=== PATIENT | male | born 1965 | race Caucasian/White ===

== ENCOUNTER 2020-02-02 14:01 | Outpatient (REF) | payer OTHER, SELFPAY | END 2020-02-02 14:02 | disposition home or self-care (01) | LOC: HO.LAB 14:01 | PROVIDERS: Visit Provider Internal Medicine | DX: Z20.828 Contact with and (suspected) exposure to other viral communicable diseases (principal) | CPT/HCPCS: C9803; U0003 ==

== ENCOUNTER 2020-03-30 12:55 | Outpatient (REF) | payer OTHER, SELFPAY | END 2020-03-30 12:56 | disposition home or self-care (01) | LOC: HO.LAB 12:55 | PROVIDERS: Visit Provider Internal Medicine | DX: Z20.822 Contact with and (suspected) exposure to COVID-19 (principal) | CPT/HCPCS: 36415; C9803; U0003; U0005 ==

== ENCOUNTER 2020-06-10 09:03 | Outpatient (REF) | payer OTHER, SELFPAY ==
[2020-06-10 10:04] LABS: COVID-19 Test Positive (Negative); IDNOW Serial# 55D5AD1C
== END 2020-06-10 09:04 | disposition home or self-care (01) ==
LOC: HO.LAB 09:03
PROVIDERS: Visit Provider Internal Medicine
DX: Z20.822 Contact with and (suspected) exposure to COVID-19 (principal)
CPT/HCPCS: 36415; 87635; C9803

== ENCOUNTER 2020-06-27 08:51 | Outpatient (REF) | payer OTHER, SELFPAY ==
[2020-06-27 09:43] LABS: COVID-19 Test Negative (Negative)
== END 2020-06-27 08:52 | disposition home or self-care (01) ==
LOC: HO.LAB 08:51
PROVIDERS: Visit Provider Internal Medicine
DX: Z20.822 Contact with and (suspected) exposure to COVID-19 (principal)
CPT/HCPCS: 36415; 87635; C9803

== ENCOUNTER 2020-08-03 18:01 | Emergency (ER) | payer OTHER, SELFPAY | END 2020-08-03 19:59 | disposition left against medical advice (07) | PROVIDERS: Emergency Provider Emergency Medicine; PCP Physician Assistant | DX: Z04.1 Encounter for examination and observation following transport accident (principal) ==

== ENCOUNTER 2020-08-04 06:59 | Emergency (ER) | payer OTHER, SELFPAY ==
--- NOTE | ~2020-08-04 | XR_ITS ---
EXAMINATION: XR SHOULDER, LEFT CLINICAL INFORMATION: Left shoulder pain COMPARISON: None TECHNIQUE: Left shoulder is imaged in 4 views. FINDINGS: There is no acute or healing fracture or dislocation. The glenohumeral joint appears normal. There are no visible rotator cuff calcifications. The acromioclavicular alignment is normal. There are osteoarthritic changes involving the acromioclavicular joint with narrowing and spurring. On the lateral view, there is subtle decreased attenuation cortex distal superior left clavicle just proximal to the distal clavicular head. This is not confirmed on the other views and may be projectional. No periostitis. No soft tissue mineralization. XR/XR shoulder LT min 2V IMPRESSION: 1. Osteoarthritis acromioclavicular joint. No acromioclavicular separation. 2. Normal glenohumeral joint. No rotator cuff calcifications. 3. Subtle decreased attenuation superior cortex distal clavicle on one view, possibly artifactual. Recommend correlation with patient's symptoms and clinical exam. If there are symptoms referrable to the distal clavicle proximal to the AC joint, then further assessment with CT or MR may be considered to assess for occult bony lesion.
[2020-08-04 07:37] VITALS: BP 183/88; PULSE 89; RESP 16; TEMP 36.5; O2SAT 99; BMI 30.1
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
[2020-08-04] MEDS: Acetaminophen 325 MG TABLET 650 MG PO (10:11)
[2020-08-04] MEDS: Ibuprofen 600 MG TABLET PO (10:12)
== END 2020-08-04 10:16 | disposition home or self-care (01) ==
PROVIDERS: Emergency Provider Emergency Medicine Emergency Medical Services; PCP Physician Assistant
DX: S40.012A Contusion of left shoulder, initial encounter (principal); V49.40XA Driver injured in collision with unspecified motor vehicles in traffic accident, initial encounter; Y93.9 Activity, unspecified; Y92.410 Unspecified street and highway as the place of occurrence of the external cause; Y99.9 Unspecified external cause status
CPT/HCPCS: 73030; 99283

== ENCOUNTER → 2020-08-15 10:28 | Outpatient (BNVA) | payer OTHER, SELFPAY | PROVIDERS: PCP Physician Assistant; Visit Provider Physician Assistant ==

== ENCOUNTER 2020-09-01 15:34 | Outpatient (REF) | payer OTHER, SELFPAY ==
--- NOTE | ~2020-09-01 | MR_ITS ---
EXAMINATION: MRI OF THE LEFT SHOULDER WITHOUT CONTRAST: CLINICAL INFORMATION: Patient reports left shoulder pain. COMPARISON: None. TECHNIQUE: MRI left shoulder was performed without contrast on a high-field MRI scanner. The exam was incomplete as the patient became claustrophobic and could only tolerate 3 out of the usual 6 series. This limits diagnostic information available. FINDINGS: ROTATOR CUFF: Limited evaluation. No findings that would suggest rotator cuff tear. Rotator cuff muscles appear normal. BICEPS TENDON: Normal. CORACOACROMIAL ARCH: There is moderate hypertrophic osteoarthritis of the acromioclavicular joint. BURSA: Normal. LABRUM/CAPSULE: Normal. GLENOHUMERAL JOINT: Normal. MR/MR shoulder LT wo con IMPRESSION: The exam is limited as the patient could only complete 3 out of the usual 6 series performed for shoulder examination. There is moderate hypertrophic osteoarthritis of the acromioclavicular joint. While the evaluation is limited the rotator cuff appears likely intact. No labral abnormality is detected.
== END 2020-09-01 15:35 | disposition home or self-care (01) ==
LOC: HO.MRI 15:34
PROVIDERS: Visit Provider Physician Assistant
DX: M95.8 Other specified acquired deformities of musculoskeletal system (principal)
CPT/HCPCS: 73221

== ENCOUNTER → 2020-09-09 08:07 | Outpatient (BNVA) | payer OTHER, SELFPAY | PROVIDERS: PCP Physician Assistant; Visit Provider Physician Assistant ==

== ENCOUNTER 2020-10-26 17:00 | Outpatient (RCR) | payer OTHER, SELFPAY ==
--- NOTE | 2020-09-27 08:23 | MHC.PT.EP ---
[facility] [place] Office [place] Office [place] Office [address] Magdaleno Buenrostro [address] [phone] F: [phone] F: [phone] F: [phone] F: [phone] Physical Therapy Plan of Care Date of Evaluation: Date of Surgery: NA Diagnosis: impingement syndrome of left Assessment: The patient arrived reporting right shoulder and neck pain. His x-ray and MRI were negative for RTC pathology. A Alma assessment showed he had an extension directional preference. The patient felt less pain after posture correction, and he felt even better with the Alma cervical retractions. He had poor proprioception and technique with doing the exercises which was improved doing the exercises supine. Frequency and Duration: The patient will be seen 2x/week x 4 weeks Short Term Goals: 1.Pt to able to demonstrate proper sitting posture with the use of a lumbar roll to decrease aggravating factors. 2.Pt to be able to demonstrate proper posture for common leisure activities such as crocheting and phone/tablet use. 3.For the patient to demonstrate proper upright sitting posture with use of the lumbar roll to improve compliance and carryover. Residential Goals: . Pt to be able to return to normal PLOF without limiting pain. 2. Pt to be able to return to overhead reaching without pain or limitation. 3. Pt to be able to manage her pain with selected exercise and stretching regime. Treatment Plan: Modalities to reduce pain, spasms and effusion. Manual therapy to restore motion and function. Therapeutic exercise to improve strength and flexibility. Neuromuscular re-education for posture and balance. Therapeutic activities to return to functional activities of daily living. Electronically signed by: Jamia Buitrago PT DPT Please sign and return to therapist. Thank you for your referral.
== END 2021-01-06 12:47 | disposition home or self-care (01) ==
LOC: HO.PT 17:00
PROVIDERS: PCP Physician Assistant; Visit Provider Physician Assistant
DX: M95.8 Other specified acquired deformities of musculoskeletal system (principal); M75.42 Impingement syndrome of left shoulder
CPT/HCPCS: 97110; 97112; 97140; 97161

== ENCOUNTER 2023-06-20 07:55 | Emergency (ER) | payer SELFPAY ==
[2023-06-20 08:02] VITALS: BP 170/90; PULSE 100; RESP 18; TEMP 36.5; O2SAT 97; BMI 29.4
--- NOTE | 2023-06-20 08:22 | PC.NURSE ---
Pt noted to have right forehead/eye swelling/redness. Multiple blister like sacs noted on forehead. 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
[2023-06-20] MEDS: Fluorescein Sodium STRIP 1 STRIP EYE-RIGHT (08:45)
[2023-06-20] MEDS: Tetracaine HCl/PF 0.5% Oph Sol 4 ML DROPS 1 DROP EYE-RIGHT (08:45)
--- NOTE | 2023-06-20 09:25 | ED.GENADULT ---
HPI - General Adult General Chief complaint: Eye Problems Stated complaint: R eye swelling Time Seen by Provider: 06/20/23 08:30 Source: patient Mode of arrival: ambulatory Limitations: no limitations History of Present Illness HPI narrative: 58-year-old male came in for evaluation of 2 days rash on his right side of his forehead and temporal area, woke up this morning his right eyelid are swollen with discharge, complaining of right eye pain, slight blurry vision, patient declined any history of being immunocompromised, no history of diabetes, not taking any steroids, a known history of previous chickenpox infection. Rashes are mainly on right forehead and temporal area of the scalp no rash on the nose. No fever, no chills, no headache. Related Data Previous Rx's ?Medication ?Instructions ?Recorded hydrochlorothiazide 12.5 mg capsule 12.5 mg PO DAILY 90 days #90 caps 09/05/20 naproxen 500 mg tablet 500 mg PO BID 10 days #20 tabs 09/05/20 erythromycin 5 mg/gram (0.5 %) eye 1 appl ophthalmic-Left 6XD #50 06/20/23 ointment grams gabapentin 100 mg capsule 100 mg PO TID PRN pain (scale 06/20/23 score 7-10) #20 caps prednisone 20 mg tablet 20 mg PO BID #10 tabs 06/20/23 valacyclovir 1 gram tablet 1,000 mg PO TID 5 days #15 tabs 06/20/23 (Valtrex) Allergies Allergy/AdvReac Type Severity Reaction Status Date / Time cephalexin [From Keflex] AdvReac Diarrhea Verified 06/20/23 08:05 Review of Systems Review of Systems: All other systems are reviewed and are negative Constitutional: Reports as per HPI and Reports no additional constitutional complaints Eyes: Reports as per HPI and Reports no additional eye complaints Reports system reviewed and no additional complaints, except as documented Cardiovascular: Reports as per HPI and Reports no additional cardiovascular complaints Respiratory: Reports as per HPI and Reports no additional respiratory complaints Gastrointestinal: Reports as per HPI and Reports no additional gastrointestinal complaints Genitourinary: Reports no additional female genitourinary complaints Musculoskeletal: Reports no additional musculoskeletal complaints Skin/Breast: Reports system reviewed and no additional complaints, except as docu Psychiatric: Reports no additional psychiatric complaints Endocrine: Reports no additional endocrine complaints Hematologic/Lymphatic: Reports no additional hematologic/lymphatic complaints Allergic/Immunologic: Reports no additional allergic/immunologic complaints Reports system reviewed and no additional complaints, except as documented and Reports Abnormal speech present [facility] Past Medical History Medical History No known health problems Surgical History No pertinent past surgical history Family History Family History Mother No problems noted. Father Alcoholism Brother In good health Sister Acute kidney failure Social History Social History Housing: House Alcohol intake: former Patient Tobacco Use Status: Current everyday Tobacco user Cigarettes Per Day: 7 e-Cigarette/Vaping Use: Never Used Second Hand Smoke Exposure: No Advance Directives: No Do you have a plan to hurt others: No Plan Current occupational status: employed Current occupation: [employer] Physical Exam ED Vital Signs: Vital Signs - 24 hr 06/20/23 08:02 Temperature 97.7 F Pulse Rate 100 Respiratory Rate 18 Blood Pressure 170/90 H Pulse Oximetry 97 Oxygen Delivery Method Room Air BMI result Body Mass Index 29.4 Vital signs have been reviewed and appear to be correct. Blood pressure elevated. Heart rate normal. Respiratory rate normal. Temperature normal. Oxygen saturation normal. Appearance: Alert. Oriented X3. No acute distress. Head: Normal external exam. Normocephalic. Atraumatic. No Munoz signs noted. No raccoon eyes note Eye exam: Visual acuity 20/50 bilaterally. General: appearance normal, both eyes and all related structures Visual Moffett: normal visual moffett by confrontation Alignment and Position: alignment normal and position normal Periorbital: periorbital with a normal Eyelids: Upper and lower eyelid swelling Conjunctivae: conjunctivae injection Sclerae: scleral injection Corneas: No corneal fluorescein uptake Pupils: Equal, round and reactive pupils present and Pupil accommodation reflex normal EOM: EOM abnormal (Limited abduction of right eye) and No Nystagmus present Direct Ophthalmoscopy: normal light reflex, no photophobia, no papilledema and fundi normal bilaterally ENT: TM's Normal. Pharynx normal. Uvula midline. Moist mucous membranes. No trismus noted. No drooling noted. No muffled voice noted. Neck: Normal inspection. Neck supple. FROM. No adenopathy. Thyroid Normal. No meningeal signs. No neck mass noted. CVS: Normal heart rate and rhythm. Heart sound normal. No murmurs noted. Pulses normal throughout. Respiratory: No respiratory distress. Painless inspiration. Breath sounds normal. No wheezes/rales/rhonchi noted. Chest nontender. No accessory muscle usage noted or decreased air movement noted. Abdomen: Soft and nontender. Bowel sounds normal in all 4 quadrants. No distention noted. No organomegaly noted. No visible injury noted. Back: No CVA tenderness. Full range of motion noted. Skin: Skin warm and dry. Normal skin color. Normal skin turgor. No rashes/lesions/lacerations noted. Extremities: No lower extremity edema. Extremities exhibit normal range of motion. Extremities nontender. Neuro: Oriented X 3. Cranial nerve exam: II-XII are grossly intact No motor deficit. No sensory deficit. Reflexes normal. Course Reevaluation(s) Reevaluation #1: Herpes zoster affecting right-sided of the face, causing conjunctivitis with likely superimposed bacterial conjunctivitis. 1. High blood pressure likely due to pain patient was instructed to follow-up with his PCP for more management of the blood pressure. 2. Herpes zoster times 24 hours patient is not immunocompromised will start the patient on Valtrex/systemic prednisone for 5 days/erythromycins/gabapentin for pain. 3. There is no fluorescein corneal uptake the case was discussed with Dr. Juarez who recommended against eyedrops steroids but agreed on systemic steroids and antiviral medication patient will be followed up as an outpatient with Dr. Juarez. Patient fully understand that great risk of herpes zoster ophthalmicus is loss of vision. Time: 09:30 Medications Administered Discontinued Medications Generic Name Dose Route Start Last Admin Trade Name Freq PRN Reason Stop Dose Admin Fluorescein Sodium 1 strip 06/20/23 08:35 06/20/23 08:45 Fluorescein Sodium Strip EYE-RIGHT 06/20/23 08:36 1 strip ONCE ONE Administration Tetracaine HCl 1 drop 06/20/23 08:35 06/20/23 08:45 Tetracaine Hcl/Pf 0.5% Oph Namita 4 Ml Drops EYE-RIGHT 06/20/23 08:36 1 drop ONCE ONE Administration Medical Decision Making Differential Diagnosis Differential Diagnoses: The differential diagnosis associated with the presentation includes (Shingles, herpes zoster ophthalmicus, conjunctivitis.) Admission/Observation Consideration of admission/observation: Escalation of care including admission/observation considered Discharge Plan Discharge Clinical Impression: Herpes zoster, Herpes zoster conjunctivitis of left eye, Acute bacterial conjunctivitis, Herpes zoster ophthalmicus of left eye Patient Disposition: Home, Self-Care Instructions: Shingles (ED), Conjunctivitis (ED) Prescriptions: New erythromycin 5 mg/gram (0.5 %) ointment 1 appl ophthalmic-Left 6XD Qty: 50 0RF Rx Instructions: Half-inch ribbon to the left eye under the eyelid every 4 hours when he is awake. prednisone 20 mg tablet 20 mg PO BID Qty: 10 0RF valacyclovir [Valtrex] 1 gram tablet 1,000 mg PO TID 5 Days Qty: 15 0RF gabapentin 100 mg capsule 100 mg PO TID PRN (Reason: pain (scale score 7-10)) Qty: 20 0RF No Action naproxen 500 mg tablet 500 mg PO BID 10 Days Qty: 20 0RF hydrochlorothiazide 12.5 mg capsule 12.5 mg PO DAILY 90 Days Qty: 90 1RF Referrals: Johnny Juarez [Physician] - Stand Alone Forms: Work/School Release Print Language: Citizen Of [place]
[2023-06-20 09:48] VITALS: BP 156/99; PULSE 94; RESP 20; TEMP 36.9; O2SAT 94
== END 2023-06-20 09:49 | disposition home or self-care (01) ==
PROVIDERS: Emergency Provider Emergency Medicine; PCP Physician Assistant
DX: H57.11 Ocular pain, right eye (principal); B02.8 Zoster with other complications; H10.33 Unspecified acute conjunctivitis, bilateral
CPT/HCPCS: 99283; 99284

== ENCOUNTER 2023-06-22 13:00 | Emergency (ER) | payer SELFPAY ==
[2023-06-22 13:04] VITALS: BP 155/91; PULSE 104; RESP 16; TEMP 36.6; O2SAT 98; BMI 29.4
--- NOTE | 2023-06-22 13:06 | ED.GENADULT ---
HPI - General Adult General Chief complaint: Eye Problems Stated complaint: r eye recheck Time Seen by Provider: 06/22/23 13:54 Source: patient Mode of arrival: ambulatory Limitations: no limitations History of Present Illness HPI narrative: patient is a 58-year-old male who presents emergency department for evaluation of increasing swelling and redness surrounding the right eye. Reports that he was seen in the emergency department 2 days ago and diagnosed with shingles and bacteria infection to the right eye. He admits that he has had difficulty applying the antibiotic eye ointment due to the amount of swelling he was having to the eye. He reports that the eye is not particularly painful especially upon movement of the eye. He has had increased drainage from the eye and crusting of the eyelashes. He states he has been compliant with the antiviral medication. When asked, he has not contacted the eye doctor for follow-up citing that he has not had the time . He does verbalize understanding that he was advised that progression of shingles to the eye could result in permanent vision loss. Related Data Previous Rx's ?Medication ?Instructions ?Recorded hydrochlorothiazide 12.5 mg capsule 12.5 mg PO DAILY 90 days #90 caps 09/05/20 naproxen 500 mg tablet 500 mg PO BID 10 days #20 tabs 09/05/20 erythromycin 5 mg/gram (0.5 %) eye 1 appl ophthalmic-Left 6XD #50 06/20/23 ointment grams gabapentin 100 mg capsule 100 mg PO TID PRN pain (scale 06/20/23 score 7-10) #20 caps prednisone 20 mg tablet 20 mg PO BID #10 tabs 06/20/23 valacyclovir 1 gram tablet 1,000 mg PO TID 5 days #15 tabs 06/20/23 (Valtrex) amoxicillin 875 mg-potassium 1 tab PO BID #14 tabs 06/22/23 clavulanate 125 mg tablet Allergies Allergy/AdvReac Type Severity Reaction Status Date / Time cephalexin [From Keflex] AdvReac Diarrhea Verified 06/22/23 13:05 Review of Systems Review of Systems: Yes all other systems are reviewed and are negative PMFSH Past Medical History Attestation statement: The following information was validated with the patient. Source: old records reviewed Medical History No known health problems Surgical History No pertinent past surgical history Family History Family History Mother No problems noted. Father Alcoholism Brother In good health Sister Acute kidney failure Social History Social History (Reviewed 09/09/20 @ 08:20 by Maylin Tsang [facility]) Housing: House Alcohol intake: former Patient Tobacco Use Status: Current everyday Tobacco user Cigarettes Per Day: 7 e-Cigarette/Vaping Use: Never Used Second Hand Smoke Exposure: No Advance Directives: No Advance Directives Information Provided: No Do you have a plan to hurt others: No Plan Current occupational status: employed Current occupation: [employer] Physical Exam ED Vital Signs: Vital Signs - 24 hr 06/22/23 13:04 Temperature 97.9 F Pulse Rate 104 H Respiratory Rate 16 Blood Pressure 155/91 H Pulse Oximetry 98 Oxygen Delivery Method Room Air BMI result Body Mass Index 29.4 Appearance: Alert.?Oriented to person, place and time. No acute distress.?Normal affect. Eyes: Pupils equal, round and reactive to light.? Visual acuity 20/50 bilaterally. no dendritic lesions or fluorescein uptake upon examination. Periorbital swelling ENT: TM normal bilaterally. Neck: Normal inspection.? Neck supple.?? CVS: Heart sounds normal. Normal heart rate and rhythm.? Pulses normal.?? Respiratory: No respiratory distress.? Lung sounds clear to auscultation bilaterally?? Skin: Skin warm and dry.? Normal skin color.? Neuro: Moves all extremities spontaneously. Sensation intact bilaterally. CN II-XII intact. No focal neuro deficits. Ambulates with normal steady gait. Course Course Course Narrative: RME performed by Larisa Guardado PA-C. Patient is a 58 year old assigned male at presenting to the emergency department with right eye swelling that has not improved. Patient was seen here recently and diagnosed with herpes zoster of the eye and conjunctivitis. Patient states that his vision is still OK. Patient states that he has not been able to get the antibiotic cream into the right eye and would rather have drops if possible. Detailed physical exam and review of systems are deferred to the control integration engineer. Patient placed back in the waiting room pending room availability. Medical Decision Making Medical Decision Making MDM Narrative: Patient is a 58-year-old male who presents emergency department for evaluation of increased swelling and redness to the right eye after being evaluated 2 days ago and diagnosed with herpes zoster and bacterial conjunctivitis. On exam has periorbital soft tissue swelling concerning for progression of herpes zoster versus superimposed bacterial periorbital cellulitis. On his recent emergency department visit he was provided with erythromycin ointment due to concern for superimposed bacterial infection, he does admit that he has had difficulty applying the erythromycin ointment. At abundance of caution will provide a course of oral antibiotics to cover bacterial periorbital cellulitis and recommend continued management with antiviral and outpatient follow-up with Ophthalmology. I again discussed the importance of follow-up with ophthalmology in that the risks of herpes zoster ophthalmicus includes vision loss and he verbalizes understanding of this. Differential Diagnosis Differential Diagnoses: The differential diagnosis associated with the presentation includes ( see narrative above) Admission/Observation Consideration of admission/observation: Escalation of care including admission/observation considered ( see narrative above) External Record Review External record reviewed: Outpatient record Prescription Management I considered prescription management with: Antibiotic Discharge Plan Discharge Clinical Impression: Herpes zoster, Preseptal cellulitis of right eye Patient Disposition: Home, Self-Care Instructions: Shingles (ED), Periorbital Cellulitis in Adults (ED) Additional Instructions: IT IS IMPORTANT THAT YOU FOLLOW-UP WITH THE EYE DOCTOR DR. JUAREZ. PLEASE CONTACT THEIR OFFICE FIRST THING SATURDAY MORNING. A SHINGLES INFECTION TO THE EYE DIRECTLY CAN RESULT IN VISION LOSS THAT CAN BE PERMANENT. A COURSE OF ORAL ANTIBIOTICS WAS SENT TO YOUR PHARMACY FOR TREATMENT OF INFECTION SURROUNDING THE RIGHT EYE. STOP USING THE ANTIBIOTIC EYE OINTMENT. IF YOU DEVELOP WORSENING PAIN, INCREASED REDNESS, DISCHARGE FROM THE EYE, INABILITY TO MOVE THE EYE SUCH LOOKING TO THE SIDE UP AND DOWN WITHOUT SIGNIFICANT PAIN THEN THIS SHOULD BE RE-EVALUATED IMMEDIATELY Prescriptions: New amoxicillin-pot clavulanate 875-125 mg tablet 1 tab PO BID Qty: 14 0RF No Action erythromycin 5 mg/gram (0.5 %) ointment 1 appl ophthalmic-Left 6XD Qty: 50 0RF Rx Instructions: Half-inch ribbon to the left eye under the eyelid every 4 hours when he is awake. prednisone 20 mg tablet 20 mg PO BID Qty: 10 0RF valacyclovir [Valtrex] 1 gram tablet 1,000 mg PO TID 5 Days Qty: 15 0RF gabapentin 100 mg capsule 100 mg PO TID PRN (Reason: pain (scale score 7-10)) Qty: 20 0RF naproxen 500 mg tablet 500 mg PO BID 10 Days Qty: 20 0RF hydrochlorothiazide 12.5 mg capsule 12.5 mg PO DAILY 90 Days Qty: 90 1RF Referrals: Jeb Anaya PA-C [Primary Care Provider] - Johnny Juarez [Physician] - Print Language: Chinese
[2023-06-22] MEDS: Tetracaine HCl/PF 0.5% Oph Sol 4 ML DROPS 1 DROP EYE-RIGHT (14:14)
[2023-06-22] MEDS: Fluorescein Sodium STRIP 1 STRIP EYE-RIGHT (14:14)
[2023-06-22 14:36] VITALS: BP 155/91; PULSE 104; RESP 16; TEMP 36.6; O2SAT 98
== END 2023-06-22 14:37 | disposition home or self-care (01) ==
PROVIDERS: Emergency Provider Student in an Organized Health Care Education/Training Program; PCP Physician Assistant
DX: L03.213 Periorbital cellulitis (principal); B02.30 Zoster ocular disease, unspecified
CPT/HCPCS: 99282; 99283

== ENCOUNTER 2023-07-12 10:27 | Emergency (ER) | payer SELFPAY ==
[2023-07-12 10:30] VITALS: BP 158/87; PULSE 100; RESP 20; TEMP 37.2; O2SAT 100; BMI 28.9
--- NOTE | 2023-07-12 12:19 | ED_ITS ---
HPI - General Adult General Chief complaint: General Medical Stated complaint: R eye pain Time Seen by Provider: 07/12/23 11:58 Source: patient, RN notes reviewed and old records reviewed Mode of arrival: ambulatory Limitations: no limitations History of Present Illness HPI narrative: 58-year-old male with past medical history significant for hypertension, current tobacco smoker presents to the ED today for evaluation right facial and eye pain x3 weeks, worsening acutely yesterday. Reports diagnosis of herpes zoster on 06/22/2023. He was discharged home with Valtrex for treatment. He took this medication to completion. Yesterday began having burning right-sided facial pain. He has not noticed any new lesions to his face. Reports pain extending from his right anabaptist into his right eye and over his right cheek. He has not been taking anything for this at home. He states he was not able to sleep last night due to the pain. Denies injury or trauma to the face. Denies foreign body sensation. Denies crusting. Denies fevers, chills, N/V, vision changes, ear pain/discharge. Related Data Previous Rx's ?Medication ?Instructions ?Recorded hydrochlorothiazide 12.5 mg capsule 12.5 mg PO DAILY 90 days #90 caps 09/05/20 naproxen 500 mg tablet 500 mg PO BID 10 days #20 tabs 09/05/20 erythromycin 5 mg/gram (0.5 %) eye 1 appl ophthalmic-Left 6XD #50 06/20/23 ointment grams gabapentin 100 mg capsule 100 mg PO TID PRN pain (scale 06/20/23 score 7-10) #20 caps prednisone 20 mg tablet 20 mg PO BID #10 tabs 06/20/23 valacyclovir 1 gram tablet 1,000 mg PO TID 5 days #15 tabs 06/20/23 (Valtrex) amoxicillin 875 mg-potassium 1 tab PO BID #14 tabs 06/22/23 clavulanate 125 mg tablet gabapentin 100 mg capsule 100 mg PO TID 2 weeks #42 caps 07/12/23 Allergies Allergy/AdvReac Type Severity Reaction Status Date / Time cephalexin [From Keflex] AdvReac Diarrhea Verified 07/12/23 10:34 Review of Systems Review of Systems: Constitutional: No fever, chills, fatigue, night sweats, weight changes ENT/Mouth: No ear pain, hearing loss, nasal congestion, sinus pain, rhinorrhea, sore throat Eyes: No swelling, redness, vision changes, discharge, +right facial and right eye pain Cardio: No chest pain, palpitations, HORNE, orthopnea, peripheral edema Pulm: No SOB, cough, sputum, wheezing, dyspnea, hemoptysis GI: No nausea, vomiting, hematemesis, abdominal pain, diarrhea, constipation, hematochezia, melena : No irregular bleeding, dysuria, frequency, urgency, hesitancy, hematuria, flank pain, urinary flow changes, urinary incontinence or retention MSK: No back pain, neck pain, joint pain, myalgias Skin: No lesions, rashes Neuro: No weakness, numbness, paresthesias, LOC, dizziness, headache Psych: No anxiety/panic, depression, SI/HI, AH/VH All other systems reviewed and are negative. [facility] Past Medical History Attestation statement: The following information was validated with the patient. Source: old records reviewed and nursing notes reviewed Medical History No known health problems Surgical History No pertinent past surgical history Family History Family History Mother No problems noted. Father Alcoholism Brother In good health Sister Acute kidney failure Social History Social History Housing: House Alcohol intake: former Patient Tobacco Use Status: Current everyday Tobacco user Cigarettes Per Day: 7 e-Cigarette/Vaping Use: Never Used Second Hand Smoke Exposure: No Advance Directives: No Advance Directives Information Provided: No Do you have a plan to hurt others: No Plan Current occupational status: employed Current occupation: [employer] Physical Exam ED Vital Signs: Vital Signs - 24 hr 07/12/23 10:30 Temperature 98.9 F Pulse Rate 100 Respiratory Rate 20 Blood Pressure 158/87 H Pulse Oximetry 100 Oxygen Delivery Method Room Air BMI result Body Mass Index 28.9 Patient hypertensive, vitals otherwise WNL Const Other: Nontoxic appearing General: cooperative, healthy appearing and no acute distress Orientation/consciousness: patient oriented x3 Limitations: no limitations HENMT Other: + Crusted lesions in dermatomal pattern noted to right anabaptist. No active pustular lesions on erythematous base noted. No lesions noted to internal external nose. No lesions noted to external right ear or EAC. Head: Yes No palpable skull fracture present, Yes normocephalic and Yes atraumatic Eyes Other: + no visual dendritic lesions. Injected conjunctiva. No corneal abrasion or ulceration. PERRLA. On fluorescein stain, there is no reuptake to indicate abrasion or foreign body. IOP OD 5, OS 16. No periorbital swelling or erythema. Neck Neck: Yes normal visual inspection, Yes full ROM and Yes no lymphadenopathy Resp Effort & Inspection: normal respiratory effort and able to speak in complete sentences Cardio Rate: regular rate Rhythm: regular rhythm Neuro General: patient oriented x3, gait normal and tone normal Course Course Course Narrative: 1340-- Physical exam consistent with healing herpes zoster lesions. I have suspicion for post herpetic neuralgia. No concern for new infection. No concer n for [place] Aquino syndrome or herpes zoster ophthalmicus. Will send gabapentin to pharmacy for nerve pain. Advised to follow-up with PCP this week. Patient has remained stable throughout ED visit today. Discussed worrisome signs and symptoms and when to return to the ED. All questions answered at this time. Patient is agreeable with disposition and stable for discharge. Medications Administered Discontinued Medications Generic Name Dose Route Start Last Admin Trade Name Jermainq PRN Reason Stop Dose Admin Fluorescein Sodium 1 strip 07/12/23 12:20 07/12/23 13:48 Fluorescein Sodium Strip EYE-RIGHT 07/12/23 12:21 1 strip ONCE ONE Administration Tetracaine HCl 1 drop 07/12/23 12:20 07/12/23 13:48 Tetracaine Hcl/Pf 0.5% Oph Namita 4 Ml Drops EYE-RIGHT 07/12/23 12:21 1 drop ONCE ONE Administration Medical Decision Making Medical Decision Making MDM Narrative: 58-year-old male with past medical history significant for hypertension, current tobacco smoker presents to the ED today for evaluation right facial and eye pain x3 weeks, worsening acutely yesterday. Patient hypertensive, vitals otherwise WNL. He is nontoxic appearing in no acute distress. Lying uncomfortably on exam bed with lights dimmed. On eye examination, there are no visual dendritic lesions. Injected conjunctiva. No corneal abrasion or ulceration. PERRLA. On fluorescein stain, there is no reuptake to indicate abrasion or foreign body. IOP OD 5, OS 16. No periorbital swelling or erythema. Crusted lesions noted to right anabaptist. No active pustular lesions on erythematous base noted. No lesions noted to internal external nose. No lesions noted to external right ear or EAC. Differential diagnosis includes shingles, post herpetic neuralgia. Unlikely leonel aquino, herpes ophthalmicus, corneal abrasion, corneal ulceration, glaucoma, herpes simplex, SJS/TEN. Plan for [facility], fluorescein and tetracaine examination, and re-evaluation. Differential Diagnosis Differential Diagnoses: The differential diagnosis associated with the presentation includes As above Admission/Observation Not indicated External Record Review External record reviewed: Inpatient record, Office record, Outpatient record, Prior outpatient labs, Prior outpatient radiology, Primary care record and Outside ED record Prescription Management I considered prescription management with: Other (Gabapentin) Discharge Plan Discharge Clinical Impression: Acute pain associated with herpes zoster Patient Disposition: Home, Self-Care Instructions: Gabapentin (By mouth), Shingles (ED) Additional Instructions: You are having pain associated with your recent shingles infection. Gabapentin is a nerve medication that has been sent to your pharmacy. Take this 3 times daily. This may make you drowsy for the first few days as your body acclimates to it. Follow up with your PCP. If pain persists or worsens or if you begin to have vision changes, please return to the ED. In the case of an emergency call 911. Prescriptions: New gabapentin 100 mg capsule 100 mg PO TID 14 Days Qty: 42 0RF No Action erythromycin 5 mg/gram (0.5 %) ointment 1 appl ophthalmic-Left 6XD Qty: 50 0RF Rx Instructions: Half-inch ribbon to the left eye under the eyelid every 4 hours when he is awake. prednisone 20 mg tablet 20 mg PO BID Qty: 10 0RF valacyclovir [Valtrex] 1 gram tablet 1,000 mg PO TID 5 Days Qty: 15 0RF gabapentin 100 mg capsule 100 mg PO TID PRN (Reason: pain (scale score 7-10)) Qty: 20 0RF amoxicillin-pot clavulanate 875-125 mg tablet 1 tab PO BID Qty: 14 0RF naproxen 500 mg tablet 500 mg PO BID 10 Days Qty: 20 0RF hydrochlorothiazide 12.5 mg capsule 12.5 mg PO DAILY 90 Days Qty: 90 1RF Referrals: Jeb Anaya PA-C [Primary Care Provider] - Interventions: ED Discharge Assessment Last Done: 07/12/23 13:47 Discharge Date/Time: 07/12/23 13:47 Print Language: Nicaraguan
[2023-07-12 13:47] VITALS: BP 145/81; PULSE 90; RESP 16; TEMP -17.7; TEMP 0
[2023-07-12] MEDS: Fluorescein Sodium STRIP 1 STRIP EYE-RIGHT (13:48)
[2023-07-12] MEDS: Tetracaine HCl/PF 0.5% Oph Sol 4 ML DROPS 1 DROP EYE-RIGHT (13:48)
== END 2023-07-12 13:47 | disposition home or self-care (01) ==
PROVIDERS: Emergency Provider Emergency Medicine; PCP Physician Assistant
DX: B02.8 Zoster with other complications (principal); H57.11 Ocular pain, right eye; I10 Essential (primary) hypertension
CPT/HCPCS: 99282; 99283

== ENCOUNTER 2024-06-30 12:38 | Emergency (ER) | payer OTHER, SELFPAY ==
--- NOTE | ~2024-06-30 | CT_ITS ---
EXAMINATION: CT CERVICAL SPINE WITHOUT CONTRAST CLINICAL INFORMATION: Neck pain. COMPARISON: None available. TECHNIQUE: Contiguous axial images through the cervical spine using 3 mm collimation with bone and soft tissue algorithm. Sagittal and coronal reformatted images on the bone algorithm. This CT examination was performed using dose optimization techniques as appropriate, variously including the following: *Automated exposure control *Adjustment of mA and/or kV according to patient size (this includes techniques or standardized protocols for targeted exams where dose is matched to indication/reason for exam; i.e. extremities or head) *Use of iterative reconstruction technique DLP: 589 mGy centimeter. FINDINGS: Craniocervical junction is intact with normal alignment. Generative changes in the periodontal C1 region. Marginal osteophyte formation at C5-6 and C6-7 levels with associated decreased intervertebral disc height. C1 is intact. C2 is intact. C3 is intact. C4 is intact. C5 is intact. C6 is intact. C3 7 is intact. Normal alignment between the vertebral bodies and the facet joints. No gross prevertebral compartment hematoma. Calcified plaques in the carotic arteries. CT/CT cervical spine wo IV con IMPRESSION: Cervical spondylosis C5-6 and C6-7 levels without acute fracture or trauma-related listhesis. Atherosclerosis disease, carotid arteries. Fleischner guidelines were followed. Electronically signed by: Drew Givens MD 06/30/2024 01:43 PM EDT
--- NOTE | ~2024-06-30 | XR_ITS ---
EXAMINATION: XR SHOULDER, LEFT CLINICAL INFORMATION: left shoulder pain COMPARISON: August 04 2020 TECHNIQUE: AP external rotation, Grashey, scapular Y, and axillary views of the left shoulder. FINDINGS: Sclerosis and the articular surface with minimal subchondral cyst formation and asymmetric joint space narrowing, acromioclavicular joint. No acute cortical disruption or malalignment. No lytic or blastic lesions. XR/XR shoulder LT min 2V IMPRESSION: No acute fracture or dislocation. Degenerative changes, acromioclavicular joint. Electronically signed by: Drew Givens MD 06/30/2024 01:44 PM EDT
[2024-06-30 13:07] VITALS: BP 183/97; PULSE 85; RESP 20; TEMP 37; O2SAT 98; BMI 30.4
--- NOTE | 2024-06-30 13:12 | ECG_ITS ---
Test Reason : SHLDR PAIN Blood Pressure : */* mmHG Vent. Rate : 77 BPM Atrial Rate : 77 BPM P-R Int : 206 ms QRS Dur : 96 ms QT Int : 356 ms P-R-T Axes : 30 49 57 degrees QTcB Int : 402 ms Normal sinus rhythm Normal ECG No previous ECGs available Referred By: Ricky Wren Electronically Signed By: JOSE THOMAS
--- NOTE | 2024-06-30 13:12 | ED.EXTPRO ---
HPI - Extremity Problem General Chief complaint: Extremity Injury, Upper Stated complaint: shoulder inj @ work Time Seen by Provider: 06/30/24 15:49 Source: patient Mode of arrival: ambulatory Limitations: no limitations History of Present Illness ED Provider: Jesse Navarrete HPI Narrative: 56-year-old male history of hypertension presents to ED for left neck left shoulder pain and tingling after heavy lifting at work. Patient was lifting heavy boxes at work and then he was holding on to the handle and while coming off he did a awkward movement and felt immediate pain in his left posterior neck and left shoulder with some tingling. Patient denies any headache, slurred speech, facial droop, nausea, vomiting, dizziness, headache, loss of vision, or paralysis of extremities. Related Data Previous Rx's ?Medication ?Instructions ?Recorded hydrochlorothiazide 12.5 mg capsule 12.5 mg PO DAILY 90 days #90 caps 09/05/20 naproxen 500 mg tablet 500 mg PO BID 10 days #20 tabs 09/05/20 erythromycin 5 mg/gram (0.5 %) eye 1 appl ophthalmic-Left 6XD #50 06/20/23 ointment grams gabapentin 100 mg capsule 100 mg PO TID PRN pain (scale 06/20/23 score 7-10) #20 caps prednisone 20 mg tablet 20 mg PO BID #10 tabs 06/20/23 valacyclovir 1 gram tablet 1,000 mg PO TID 5 days #15 tabs 06/20/23 (Valtrex) amoxicillin 875 mg-potassium 1 tab PO BID #14 tabs 06/22/23 clavulanate 125 mg tablet gabapentin 100 mg capsule 100 mg PO TID 2 weeks #42 caps 07/12/23 naproxen 500 mg tablet 500 mg PO BID PRN pain #14 tabs 06/30/24 Allergies Allergy/AdvReac Type Severity Reaction Status Date / Time cephalexin [From Keflex] AdvReac Diarrhea Verified 06/30/24 13:07 Review of Systems Review of Systems: Left neck and left shoulder pain after heavy lifting at work and awkward movement. Yes all other systems are reviewed and are negative PMFSH Past Medical History Medical History No known health problems Surgical History No pertinent past surgical history Family History Family History Mother No problems noted. Father Alcoholism Brother In good health Sister Acute kidney failure Social History Social History Housing: House Alcohol intake: former Patient Tobacco Use Status: Current everyday Tobacco user Cigarettes Per Day: 7 e-Cigarette/Vaping Use: Never Used Second Hand Smoke Exposure: No Current occupational status: employed Current occupation: [employer] Physical Exam Vital Signs: Vital Signs: Last Vital Signs Temp 97.8 F 06/30/24 16:25 Pulse 96 06/30/24 16:25 Resp 18 06/30/24 16:25 BP 147/84 H 06/30/24 16:25 Pulse Ox 97 06/30/24 16:25 O2 Del Method Room Air 06/30/24 16:25 BMI result Body Mass Index 30.4 Const: General: cooperative, healthy appearing, comfortable, no acute distress, well developed, alert, awake and Physically active Orientation/consciousness: patient oriented x3 HEENT: Head: Yes normal to inspection, Yes No palpable skull fracture present, Yes normocephalic, Yes atraumatic and No abrasion Eyes: General: appearance normal, both eyes and all related structures Neck: Neck: Yes normal visual inspection, Yes full ROM, Yes no lymphadenopathy, Yes no meningeal signs, Yes trachea midline, Yes supple, No anterior neck swelling and Yes tender (positive cervical spine tenderness on palpation. ) Chest: Chest palpation & inspection: normal inspection of the chest and normal palpation of entire chest wall Resp: Effort & Inspection: normal respiratory effort and able to speak in complete sentences Auscultation: clear to auscultation bilaterally Cardio: Jugular venous distension: no JVD Heart sounds: S1 normal heart sound present and S2 normal heart sound present GI: Inspection: Yes normal to inspection Palpation (GI): Soft to palpation, not firm, nontender, no guarding and not rigid : General: Yes no CVA tenderness Back/Spine/Pelvis: Back: no CVA tenderness and No back tenderness Skin: General skin exam: no rashes or lesions noted, elasticity normal and turgor normal Neuro: General: patient oriented x3, gait normal, tone normal, moves all extremities, Normal light touch and pain sensation, no meningeal signs, no focal motor deficits, CN's II-XI intact bilaterally and normal sensation to monofilament Extrem: General: Yes normal to inspection, Yes full ROM and Yes capillary refill normal Shoulder/upper arm images: 1. Positive for tenderness on palpation. Negative for crepitus ecchymosis or deformity. Negative for swelling. Rest of extremity normal. Motor/neuro/vascular exam intact 2. Positive for tenderness on palpation. Negative for crepitus ecchymosis or deformity. Negative for swelling. Rest of extremity normal. Motor/neuro/vascular exam intact Psych: Appearance: grossly normal, well kempt and not disheveled NIH Stroke Scale Internal: Initial- Upon Arrival Level of Consciousness: Alert Level of Consciousness Questions: Answers both questions correctly Level of Consciousness Commands: Performs both tasks correctly Best Gaze: Normal Visual: No visual loss Facial Palsy: Normal Motor Arm (Right): No drift Motor Arm (Left): No drift Motor Leg (Right): No drift Motor Leg (Left): No drift Limb Ataxia: Absent Sensory: Normal Best Language: No aphasia Dysarthia: Normal Extinction and Inattention: No abnormality Score: 0 Course Course Course Narrative: RME: 59 year male presents to ED for left posterior neck left shoulder pain that occurred 1 hour after accidentally pulling in his neck left shoulder. Patient was picking up heavy staff from the truck and while holding onto the handle he moved awkwardly while stepping out and felt sudden pain in posterior neck and left shoulder that caused tingling. Patient denies any chest or shortness of breath. Patient has history of high blood pressure. Cervical spine shoulder x-ray ordered. Due to age and history of hypertension will do EKG make sure no cardiac event. NIH Score 0. Medical Decision Making Medical Decision Making [facility] Narrative: 4:09pm: [age] year male history of high blood pressure presents to ED for left-sided neck shoulder pain after lifting heavy boxes from a truck and then while stepping off the truck he was holding onto the rail and did a awkward movement and ever since had pain and tingling in left neck down left shoulder. Patient denies any headache, slurred speech, facial droop, or paralysis of extremities. Patient denies any nausea or vomiting. EKG labs 2 troponins came back negative. Cervical spine CT scan shows cervical radiculopathy and shoulder x-ray shows arthritis. Patient re-evaluated once again negative for any signs of neuro deficits. No need for head CT scan. No need for head CTA. Not suspecting stroke, carotid dissection, epidural abscess, large vessel occlusion, cauda equinus, or myocardial infarction. Patient explained worrisome signs and informed to return to the ED immediately. Patient presently asymptomatic and feels better. Differential Diagnosis Differential Diagnoses: The differential diagnosis associated with the presentation includes (Sprain. Cervical radiculopathy, IL, shoulder dislocation) Admission/Observation Consideration of admission/observation: Escalation of care including admission/observation considered Lab Data MDM Lab Attestation statement: I reviewed the patient's lab results. 06/30/24 14:08 06/30/24 14:08 Labs: Lab Results 06/30/24 06/30/24 Range/Units 14:08 15:30 WBC 8.6 (4.8-10.8) X10*3/uL RBC 5.32 (4.60-5.80) X10*6/uL Hgb 17.0 (14.0-18.0) g/dl Hct 48.8 (42.0-52.0) % MCV 91.7 (80.0-98.0) fL MCH 32.0 (27.0-33.0) pg MCHC 34.8 (31.0-36.0) g/dl RDW 13.0 (11.0-16.0) % Plt Count 286 (160-400) X10*3/uL MPV 10.2 (9.4-12.4) fL Immature Gran % (Auto) 0.2 (0.0-0.4) % Neut % (Auto) 68.4 (45-73) % Lymph % (Auto) 19.8 L (20-40) % [place] % (Auto) 9.2 (2-11) % Eos % (Auto) 1.2 (0-4) % Baso % (Auto) 1.2 (0-2) % Lymph # (Auto) 1.7 (1.2-4.9) X10*3/uL [place] # (Auto) 0.8 (0.1-1.2) X10*3/uL Eos # (Auto) 0.1 (0.0-0.4) X10*3/uL Baso # (Auto) 0.1 (0.0-0.2) X10*3/uL Abs Immat Gran (auto) 0.02 (0.00-0.03) X10*3/uL Absolute Neuts (auto) 5.9 (2.0-8.3) x10*3/uL Absolute Nucleated RBC 0.000 (0.0-0.012) X10*3/uL Nucleated RBC % (auto) 0.0 (0.0-0.2) /100WBC PT 11.0 (10.9-12.4) SEC INR 0.9 (0.9-1.1) APTT 36.3 (26.0-36.8) SEC Sodium 141 (135-145) mmol/L Potassium 4.2 (3.3-5.1) mmol/L Chloride 105 (96-108) mmol/L Carbon Dioxide 28 (22-29) mmol/L Anion Gap 12 (12-20) BUN 12 (9-16) mg/dL Creatinine 0.88 (0.5-1.4) mg/dL Estim Creat Clear Calc 106.3 Estimated GFR > 60 Random Glucose 97 (60-115) mg/dL Calcium 9.6 (8.4-10.2) mg/dL Total Bilirubin 0.8 (0.0-1.0) mg/dL AST 24 (5-37) U/L ALT 22 (0-40) U/L Alkaline Phosphatase 64 (39-117) U/L Troponin I High Sens < 2.7 < 2.7 (<3.5-35.0) ng/L B-Natriuretic Peptide < 10 (<100) pg/mL Total Protein 7.7 (6.5-8.0) g/dL Albumin 4.7 (3.5-5.0) g/dL Independent Interpretation I performed an independent interpretation of an: EKG (Negative STEMI) Independent Historian Clinical information obtained from an independent historian. History obtained from or confirmed by: Other (Patient) Prescription Management I considered prescription management with: Pain Medication Discharge Plan Discharge Clinical Impression: Cervical radiculopathy, Arthritis of shoulder Patient Disposition: Home, Self-Care Instructions: Osteoarthritis (ED), Cervical Radiculopathy (ED), Arthralgia (ED), Shoulder Pain (ED) Additional Instructions: Your imaging labs and EKG came back reassuring. Recommend follow up with the primary care provider. Return to the ED immediately for any chest pain, shortness of breath, shoulder neck pain, slurred speech, facial droop, paralysis of extremities, nausea, vomiting, or any other concerning symptoms. Recommend resting left upper extremity for next 3 days. Recommend movement but no strenuous activity. FINDINGS: Craniocervical junction is intact with normal alignment. Generative changes in the periodontal C1 region. Marginal osteophyte formation at C5-6 and C6-7 levels with associated decreased intervertebral disc height. C1 is intact. C2 is intact. C3 is intact. C4 is intact. C5 is intact. C6 is intact. C3 7 is intact. Normal alignment between the vertebral bodies and the facet joints. No gross prevertebral compartment hematoma. Calcified plaques in the carotic arteries. CT/CT cervical spine wo IV con IMPRESSION: Cervical spondylosis C5-6 and C6-7 levels without acute fracture or trauma-related listhesis. Atherosclerosis disease, carotid arteries. Fleischner guidelines were followed. EXAMINATION: XR SHOULDER, LEFT CLINICAL INFORMATION: left shoulder pain COMPARISON: August 04 2020 TECHNIQUE: AP external rotation, Grashey, scapular Y, and axillary views of the left shoulder. FINDINGS: Sclerosis and the articular surface with minimal subchondral cyst formation and asymmetric joint space narrowing, acromioclavicular joint. No acute cortical disruption or malalignment. No lytic or blastic lesions. XR/XR shoulder LT min 2V IMPRESSION: No acute fracture or dislocation. Degenerative changes, acromioclavicular joint. Prescriptions: New naproxen 500 mg tablet 500 mg PO BID PRN (Reason: pain) Qty: 14 0RF No Action erythromycin 5 mg/gram (0.5 %) ointment 1 appl ophthalmic-Left 6XD Qty: 50 0RF Rx Instructions: Half-inch ribbon to the left eye under the eyelid every 4 hours when he is awake. prednisone 20 mg tablet 20 mg PO BID Qty: 10 0RF valacyclovir [Valtrex] 1 gram tablet 1,000 mg PO TID 5 Days Qty: 15 0RF gabapentin 100 mg capsule 100 mg PO TID PRN (Reason: pain (scale score 7-10)) Qty: 20 0RF amoxicillin-pot clavulanate 875-125 mg tablet 1 tab PO BID Qty: 14 0RF gabapentin 100 mg capsule 100 mg PO TID 14 Days Qty: 42 0RF naproxen 500 mg tablet 500 mg PO BID 10 Days Qty: 20 0RF hydrochlorothiazide 12.5 mg capsule 12.5 mg PO DAILY 90 Days Qty: 90 1RF Referrals: [facility] [Outside] (Neck shoulder pain after heavy lifting at work.) Stand Alone Forms: Work/School Release Interventions: ED Discharge Assessment Last Done: 06/30/24 16:25 Discharge Date/Time: 06/30/24 16:25 Print Language: Serbian
[2024-06-30 14:13] LABS: MANUAL DIFF FLAG NO
[2024-06-30 14:15] LABS: Basophils Absolute Auto 0.1 X10*3/uL (0.0-0.2); Basophils Percent Auto 1.2 % (0-2); Eosinophils Absolute Auto 0.1 X10*3/uL (0.0-0.4); Eosinophils Percent Auto 1.2 % (0-4); Hematocrit 48.8 % (42.0-52.0); Imm Gran Abs Auto 0.02 X10*3/uL (0.00-0.03); Imm Gran Pct Auto 0.2 % (0.0-0.4); Lymphocytes Absolute Auto 1.7 X10*3/uL (1.2-4.9); Lymphocytes Percent Auto 19.8 % (20-40); Mean Corpuscular HGB Conc 34.8 g/dl (31.0-36.0); Mean Corpuscular Volume 91.7 fL (80.0-98.0); Mean Platelet Volume 10.2 fL (9.4-12.4); Monocytes Absolute Auto 0.8 X10*3/uL (0.1-1.2); Monocytes Percent Auto 9.2 % (2-11); Neutrophils Absolute Auto 5.9 x10*3/uL (2.0-8.3); Neutrophils Percent Auto 68.4 % (45-73); Platelet Count 286 X10*3/uL (160-400); Red Blood Count 5.32 X10*6/uL (4.60-5.80); White Blood Count 8.6 X10*3/uL (4.8-10.8)
[2024-06-30 14:20] LABS: INTERNATIONAL NORM RATIO 0.9 (0.9-1.1)
[2024-06-30 14:23] LABS: Partial Thromboplastin Time 36.3 SEC (26.0-36.8)
[2024-06-30 14:34] LABS: B Type Natriuretic Peptide < 10 pg/mL (<100)
[2024-06-30 14:39] LABS: Alanine Aminotransferase 22 U/L (0-40); Albumin Level 4.7 g/dL (3.5-5.0); Anion Gap 12 (12-20); Aspartate Amino Transferase 24 U/L (5-37); Bilirubin Total 0.8 mg/dL (0.0-1.0); Blood Urea Nitrogen 12 mg/dL (9-16); Calcium 9.6 mg/dL (8.4-10.2); Carbon Dioxide 28 mmol/L (22-29); Chloride 105 mmol/L (96-108); Creatinine Clr Calc Pharmacy 106.3; Estimated Glomerular Filt Rate > 60; Glucose Random 97 mg/dL (60-115); Potassium 4.2 mmol/L (3.3-5.1); Sodium 141 mmol/L (135-145); Total Protein 7.7 g/dL (6.5-8.0); Troponin-I High Sensitivity < 2.7 ng/L (<3.5-35.0)
[2024-06-30 15:46] VITALS: BP 147/84; PULSE 96; RESP 18; TEMP 36.6; O2SAT 97
[2024-06-30 16:00] LABS: Troponin-I High Sensitivity < 2.7 ng/L (<3.5-35.0)
[2024-06-30 16:25] VITALS: BP 147/84; PULSE 96; RESP 18; TEMP 36.6; O2SAT 97
[2024-06-30 17:28] LABS: Alkaline Phosphatase 64 U/L (39-117)
== END 2024-06-30 16:25 | disposition home or self-care (01) ==
PROVIDERS: Physician Assistant; Emergency Provider Emergency Medicine Emergency Medical Services
DX: Z04.2 Encounter for examination and observation following work accident (principal); M54.12 Radiculopathy, cervical region; M19.012 Primary osteoarthritis, left shoulder; M25.512 Pain in left shoulder; R20.2 Paresthesia of skin; R29.700 NIHSS score 0; I10 Essential (primary) hypertension
CPT/HCPCS: 36415; 72125; 73030; 80053; 83880; 84484; 85025; 85610; 85730; 93005; 99283; 99284

== ENCOUNTER → 2024-06-30 13:12 | Outpatient (BNV) | payer OTHER, SELFPAY | PROVIDERS: Emergency Provider Emergency Medicine Emergency Medical Services; Visit Provider Internal Medicine | DX: M25.519 Pain in unspecified shoulder (principal) | CPT/HCPCS: 93010 ==

== ENCOUNTER → 2024-06-30 13:12 | Outpatient (BNV) | payer SELFPAY | PROVIDERS: Visit Provider Radiology Diagnostic Radiology | DX: M47.812 Spondylosis without myelopathy or radiculopathy, cervical region (principal); M54.2 Cervicalgia; M19.012 Primary osteoarthritis, left shoulder; M25.512 Pain in left shoulder | CPT/HCPCS: 72125; 73030 ==

== ENCOUNTER → 2024-07-01 08:46 | Outpatient (BNVA) | payer OTHER, SELFPAY | PROVIDERS: Visit Provider Physician Assistant | DX: S46.812A Strain of other muscles, fascia and tendons at shoulder and upper arm level, left arm, initial encounter (principal); X58.XXXA Exposure to other specified factors, initial encounter | CPT/HCPCS: 99204 ==

== ENCOUNTER → 2024-07-09 15:03 | Outpatient (BNVA) | payer OTHER, SELFPAY | PROVIDERS: Visit Provider Physician Assistant | DX: S46.812A Strain of other muscles, fascia and tendons at shoulder and upper arm level, left arm, initial encounter (principal); X58.XXXA Exposure to other specified factors, initial encounter | CPT/HCPCS: 99213 ==

== ENCOUNTER → 2024-07-23 15:40 | Outpatient (BNVA) | payer OTHER, SELFPAY | PROVIDERS: Visit Provider Physician Assistant | DX: S46.812A Strain of other muscles, fascia and tendons at shoulder and upper arm level, left arm, initial encounter (principal); X58.XXXA Exposure to other specified factors, initial encounter; Z02.79 Encounter for issue of other medical certificate | CPT/HCPCS: 99213 ==